=== PATIENT | female | born 1965 | race African-American/Black ===

== ENCOUNTER 2018-02-24 08:07 | Outpatient (CLI) | payer BC | END 2018-02-24 08:08 | disposition home or self-care (01) | LOC: BICMAMMO 08:07 | PROVIDERS: ATTEND Internal Medicine | DX: Z12.31 Encounter for screening mammogram for malignant neoplasm of breast (principal) | CPT/HCPCS: 77063; 77067 ==

== ENCOUNTER 2019-02-27 08:16 | Outpatient (CLI) | payer BC ==
--- NOTE | 2019-02-27 08:58 | MMO ---
Bilateral MAMMO Bilat Screen [facility]. CLINICAL HISTORY: Patient is 53 years old and is seen for screening. The patient has no family history of breast cancer. The patient has no personal history of cancer. VIEWS: The views performed were: bilateral craniocaudal with tomosynthesis; bilateral mediolateral oblique with tomosynthesis; and bilateral exaggerated craniocaudal. FILMS COMPARED: The present examination has been compared to prior imaging studies performed at [facility] on 02/23/2017 and 02/24/2018, and at [facility] on 11/09/2013. MAMMOGRAM FINDINGS: The breasts are heterogeneously dense, which could obscure a lesion on mammography. There are no suspicious masses, suspicious calcifications, or new areas of architectural distortion. IMPRESSION: THERE IS NO MAMMOGRAPHIC EVIDENCE OF MALIGNANCY. A ROUTINE FOLLOW-UP MAMMOGRAM IN 1 YEAR IS RECOMMENDED. THE RESULTS OF THIS EXAM WERE SENT TO THE PATIENT. ACR BI-RADS Category 1 - Negative MAMMOGRAPHY NOTE: 1. A negative mammogram report should not delay a biopsy if a dominant of clinically suspicious mass is present. 2. Approximately 10% to 15% of breast cancers are not detected by mammography. 3. Adenosis and dense breasts may obscure an underlying neoplasm.
== END 2019-02-27 08:17 | disposition home or self-care (01) ==
LOC: BICMAMMO 08:16
PROVIDERS: ATTEND Internal Medicine
DX: Z12.31 Encounter for screening mammogram for malignant neoplasm of breast (principal)
CPT/HCPCS: 77063; 77067

== ENCOUNTER 2019-08-14 06:42 | Outpatient (CLI) | payer BC ==
[2019-08-14 11:39] LABS: #Monocytes 0.4 thou/uL (0.11-0.59); #Neutrophils 2.7 thou/uL (1.40-6.50); %Basophils 0.5 % (0.0-1.0); %Eosinophils 0.6 % (0.0-10.0); %Lymphocytes 38.2 % (21.0-51.0); %Monocytes 8.1 % (0.0-10.0); %Neutrophils 52.7 % (42.0-75.0); Hemoglobin 12.1 g/dL (12.0-16.0); Mean Corpuscular HGB CONC 32.2 g/dL (32.0-36.0); Mean Corpuscular Hemoglobin 26.6 pg (27.0-31.0); Mean Corpuscular Volume 82.6 fL (78.0-98.0); Mean Platelet Volume 7.5 fL (7.4-10.4); Platelet Count 437 thou/uL (130-400); RBC Distribution Width 12.8 % (11.5-14.5); Red Blood Cell (RBC) Count 4.54 mill/uL (4.20-5.40); White Blood Cell (WBC) Count 5.1 thou/uL (4.8-10.8)
[2019-08-14 12:00] LABS: Anion Gap 15 mmol/L (10-20); BUN (Urea Nitrogen) 21 mg/dL (9.8-20.1); Calc. Creatinine Clearance 0 mL/min (70-130); Carbon Dioxide 28 mmol/L (22-29); Chloride 98 mmol/L (98-107); Estimated GFR-MDRD 70; Glucose 222 mg/dL (70-105); Potassium 4.8 mmol/L (3.5-5.1); Sodium 136 mmol/L (136-145)
== END 2019-08-14 06:43 | disposition home or self-care (01) ==
LOC: LABBT 06:42
PROVIDERS: ATTEND Orthopaedic Surgery
DX: Z01.818 Encounter for other preprocedural examination (principal); S83.207A Unspecified tear of unspecified meniscus, current injury, left knee, initial encounter
CPT/HCPCS: 80048; 85025; 93005; 93010

== ENCOUNTER 2019-08-16 09:42 | Day surgery (SDC) | payer BC ==
[2019-08-14 10:38] VITALS: BMI 35.5
[2019-08-16] MEDS ORDERED: PROPOFOL 20 ML ONE (10:20)
[2019-08-16] MEDS ORDERED: Bupivacaine HCl 0.5%/Epinephrine 1:200,000/PF 30 ml Vial ONE (10:21)
[2019-08-16] MEDS ORDERED: Ondansetron PF 4 MG/2 ML Vial ONE (10:21)
[2019-08-16] MEDS ORDERED: Ketorolac Tromethamine 30 MG/ML VIAL ONE (10:21)
[2019-08-16] MEDS ORDERED: PROPOFOL 200 MG/20 ML VIAL ONE (10:21)
[2019-08-16] MEDS ORDERED: Lidocaine 2% w/Epinephrine 1:200K 20 ML VIAL ONE (10:21)
--- NOTE | 2019-08-16 14:47 | OP ---
DATE OF PROCEDURE: 08/16/2019 PREOPERATIVE DIAGNOSIS: Left knee lateral meniscal tear. POSTOPERATIVE DIAGNOSES: 1. Left knee lateral meniscal tear. 2. She had some grade 3 and 4 changes, most notably, in the patellofemoral joint on the trochlea and patella, also had 1 punctate grade 4 lesion on the lateral tibial plateau. PROCEDURES PERFORMED: 1. Left knee arthroscopy with partial lateral meniscectomy. 2. Debridement and shaving of unstable chondral flaps of the trochlea, the patella, and the lateral tibial plateau. PRECISION FARMING COORDINATOR: None. ESTIMATED BLOOD LOSS: Minimal. COMPLICATIONS: None. ANESTHESIA: she had a general and then she also had a local block. DISPOSITION: She went to recovery room in stable condition. INDICATIONS: A 53-year-old female who comes in complaining of left knee pain after injuring herself. An MRI scan showed her to have a meniscus tear and some cartilage damage. At this time, she opted for surgery. DESCRIPTION OF PROCEDURE: After all appropriate consent forms were explained and signed, she was taken to the operative room and at this time was given a general anesthetic. Once the level of anesthesia was appropriate, tourniquet was placed on the left thigh. Leg was then placed in arthroscopic leg martinez. The limb was then prepped and draped in standard surgical fashion. The limb was exsanguinated and tourniquet was taken up to 300 mmHg. Inferolateral portal was established. Scope was placed into the knee joint. Needle localization technique was then used to make a medial working portal. Diagnostic arthroscopy commenced in the notch. The ACL and PCL were probed, found to be intact. The medial compartment was evaluated. There was supposed to be a tear of the medial meniscus, but this was probed thoroughly on its superior and inferior surface as well as the root and this was found to be completely intact. I did look as if she lost some hoop stresses as the meniscus looked to be little bit more posterior than normal, but again no tear was noted anywhere. The patient did have some small areas of grade 2 changes on the medial femoral condyle, but there was no unstable chondral flaps noted. As we entered the lateral compartment, the patient was found to have a tear in the lateral meniscus at the posterior horn going into the root. Partial meniscectomy was performed using meniscal biter and shaver. There was a small punctate lesion, which was a small grade 4 lesion on the tibial plateau within the central area. Unstable chondral flaps were debrided. The gutters were swept through and no significant loose bodies were noted. The patellofemoral joint showed her to have some grade 3 and 4 changes on her trochlea and she had a small area of grade 3 and 4 change on her medial facet of the patella. All loose chondral flaps were debrided gently with chondrotome. At this time, we went through the knee one more time, looking for any more loose bodies. We also did go into the posterior medial aspect of the knee joint with the camera, looking for any loose bodies. We did not find any. Also, we were able to look at the posterior horn of the medial meniscus through the back of the knee and confirmed that indeed it was intact. At this time, the scope was removed. Knee was drained and portals were closed with simple nylon stitch. Bulky sterile dressing was applied. Tourniquet was let down. Toes pinked up nicely. The patient was awakened. She was taken to recovery room in stable condition. All counts were correct at the end of the case and she did receive preoperative IV antibiotics. Job ID: [id number]
== END 2019-08-16 13:15 | disposition home or self-care (01) ==
LOC: SDC 09:42
PROVIDERS: ATTEND Orthopaedic Surgery
PROC: 0SBD4ZZ Excision of Left Knee Joint, Percutaneous Endoscopic Approach (ICD-10-PCS; principal; 2019-08-16)
DX: S83.282A Other tear of lateral meniscus, current injury, left knee, initial encounter (principal); I10 Essential (primary) hypertension; E11.9 Type 2 diabetes mellitus without complications; Z79.84 Long term (current) use of oral hypoglycemic drugs; Z79.899 Other long term (current) drug therapy; Z88.8 Allergy status to other drugs, medicaments and biological substances; X58.XXXA Exposure to other specified factors, initial encounter
CPT/HCPCS: J0670; J0690; J1885; J2405; J2704

== ENCOUNTER 2020-05-01 13:09 | Outpatient (CLI) | payer BC ==
--- NOTE | 2020-05-01 13:36 | MMO ---
Bilateral MAMMO Bilat Screen [facility]. CLINICAL HISTORY: Patient is 54 years old and is seen for screening. The patient has no family history of breast cancer. The patient has no personal history of cancer. VIEWS: The views performed were: bilateral craniocaudal with tomosynthesis; bilateral mediolateral oblique with tomosynthesis; and bilateral exaggerated craniocaudal. FILMS COMPARED: The present examination has been compared to prior imaging studies performed at [facility] on 02/23/2017, 02/24/2018 and 02/27/2019, and at [facility] on 11/09/2013. This study has been interpreted with the assistance of computer-aided detection. MAMMOGRAM FINDINGS: The breasts are heterogeneously dense, which could obscure a lesion on mammography. There are no suspicious masses, suspicious calcifications, or new areas of architectural distortion. IMPRESSION: THERE IS NO MAMMOGRAPHIC EVIDENCE OF MALIGNANCY. A ROUTINE FOLLOW-UP MAMMOGRAM IN 1 YEAR IS RECOMMENDED. THE RESULTS OF THIS EXAM WERE SENT TO THE PATIENT. ACR BI-RADS Category 1 - Negative MAMMOGRAPHY NOTE: 1. A negative mammogram report should not delay a biopsy if a dominant of clinically suspicious mass is present. 2. Approximately 10% to 15% of breast cancers are not detected by mammography. 3. Adenosis and dense breasts may obscure an underlying neoplasm. Reported by: CARMEN BEYER MD Electonically Signed: [id number]
== END 2020-05-01 13:10 | disposition home or self-care (01) ==
LOC: BICMAMMO 13:09
PROVIDERS: ATTEND Internal Medicine
DX: Z12.31 Encounter for screening mammogram for malignant neoplasm of breast (principal)
CPT/HCPCS: 77063; 77067

== ENCOUNTER 2021-06-27 15:24 | Outpatient (CLI) | payer BC | END 2021-06-27 15:25 | disposition home or self-care (01) | LOC: BICMAMMO 15:24 | PROVIDERS: ATTEND Internal Medicine | DX: Z12.31 Encounter for screening mammogram for malignant neoplasm of breast (principal) | CPT/HCPCS: 77063; 77067 ==

== ENCOUNTER 2022-09-23 08:46 | Outpatient (CLI) | payer BC | END 2022-09-23 08:47 | disposition home or self-care (01) | LOC: BICMAMMO 08:46 | PROVIDERS: ATTEND Internal Medicine | DX: Z12.31 Encounter for screening mammogram for malignant neoplasm of breast (principal) | CPT/HCPCS: 77063; 77067 ==